=== PATIENT | male | born 1965 | race Caucasian/White ===

== ENCOUNTER 2022-07-15 16:52 | Emergency (ER) | payer OTHER ==
[2022-07-15 17:04] VITALS: BP 121/61; PULSE 62; RESP 18; TEMP 97.5; BMI 29.7
[2022-07-15] MEDS ORDERED: DEXAMETHASONE SOD PHOSPHATE 10 MG/1 ML VIAL IM ONE (18:26)
[2022-07-15] MEDS ORDERED: diazePAM 5 MG TABLET PO ONE (18:26)
[2022-07-15] MEDS ORDERED: ACETAMINOPHEN 500 MG TABLET (FP) PO ONE (18:29)
[2022-07-15] MEDS ORDERED: diazePAM 5 MG TABLET ONE (18:51)
[2022-07-15] MEDS ORDERED: ACETAMINOPHEN 500 MG TABLET (FP) ONE (18:51)
[2022-07-15] MEDS ORDERED: DEXAMETHASONE SOD PHOSPHATE 10 MG/1 ML VIAL ONE (18:51)
== END 2022-07-15 21:46 | disposition home or self-care (01) ==
LOC: JERFT 16:52 → JER 16:52 → JERFT 21:46
PROC: 3E023GC Introduction of Other Therapeutic Substance into Muscle, Percutaneous Approach (ICD-10-PCS; principal; 2022-07-15)
DX: M54.50 Low back pain, unspecified (principal)
CPT/HCPCS: 72131-TC; 99284-25; J1100